=== PATIENT | female | born 1940 | race Caucasian/White ===

== ENCOUNTER 2018-07-15 21:30 | Inpatient (IN) ==
[2018-07-15] MEDS ORDERED: SODIUM CHLORIDE 0.9% 2,000 ML IV STA (21:54)
[2018-07-15 23:27] LABS: Apearance,Urine Slightly Hazy (Clear); Bacteria,Urine Occasional /HPF (Few); Bilirubin,Urine Negative (Negative); Blood, Urine Small mg/dL (Negative); Glucose,Urine (UA) Negative (Negative); Ketones,Urine 5 mg/dL (Negative); Mucus,Urine Occasional /LPF (Occasional); Nitrite,Urine Negative (Negative); Protein,Urine Negative; RBC,Urine 2 /HPF (0-4); Squamous Epithelial Cell,Urine Occasional /HPF (0-10); Urine Color Amber (Yellow); Urine Specific Gravity 1.015 (1.001-1.035); Urine Urobilinogen < 2.0 EU/DL (0.2-1.0); WBC,Urine 3 /HPF (0-6)
[2018-07-16] MEDS ORDERED: CEFEPIME 1,000 MG in SODIUM CHLORIDE 0.9% 100 ML IV STA (00:11)
[2018-07-16 00:21] LABS: Basophils % 0.2 % (0.0-0.8); Hematocrit 35.3 VOL% (35.7-47.0); Hemoglobin 11.9 GM/DL (12.0-16.0); Immature Granulocytes Absolute 0.19 #; Lymphocytes % 4.8 % (21.3-54.2); Mean Corpuscular HGB Conc 33.7 GM/DL (32-36); Mean Corpuscular Volume 89.8 FL (87-102); Mean Platelet Volume 12.5 FL (9.6-12.0); Monocytes % 7.8 % (1.7-12.7); Neutrophils % 86.2 % (38.7-73.9); Platelet Count 229 T/CUMM (130-400); Red Blood Count 3.93 MC/CUMM (3.8-5.5); Red Cell Distribution Width 13.8 % (9.3-17.3)
[2018-07-16] MEDS ORDERED: VANCOMYCIN INJ 1,000 MG in SODIUM CHLORIDE 0.9% 250 ML IV STA (00:29)
[2018-07-16 00:39] LABS: Albumin 2.7 G/DL (3.4-5.0); Calcium 7.9 MG/DL (8.5-10.1); Osmolality,Calculated 296.6 MOS/KG (273-304); Total Protein 5.6 G/DL (6.4-8.3)
[2018-07-16 00:55] LABS: Lymphocytes 4 % (20-55); Segmented Neutrophils 91 % (50-85); Total Cells Counted 100
[2018-07-16 00:56] LABS: Anisocytosis Slight; Microcytosis Slight
[2018-07-16 00:57] LABS: Platelet Estimate Normal
[2018-07-16] MEDS ORDERED: ACETAMINOPHEN 325 MG TABLET PO PRN (02:38)
[2018-07-16] MEDS ORDERED: DEXTROSE 50% 25 GM/50 ML SYRINGE IV PRN (02:38)
[2018-07-16] MEDS ORDERED: ONDANSETRON 4 MG/2 ML VIAL IV PRN (02:38)
[2018-07-16] MEDS ORDERED: GLUCAGON 1 MG VIAL IM PRN (02:38)
[2018-07-16] MEDS: PIPERACILLIN/TAZOBACTAM 3,375 MG in SODIUM CHLORIDE 0.9% 100 ML IV SCH ×2 (02:45→20:38)
[2018-07-16] MEDS: ENOXAPARIN 30 MG/0.3 ML SYRINGE SUBCUT SCH (04:49)
[2018-07-16] MEDS: SODIUM CHLORIDE 0.9% 1,000 ML IV SCH ×4 (04:50→20:38)
[2018-07-16 06:47] LABS: Basophils # 0.1 10*3/uL (0.0-0.2); Basophils % 0.3 % (0.0-0.8); Eosinophils % 0.2 % (0.00-10.9); Hematocrit 34.6 VOL% (35.7-47.0); Hemoglobin 11.2 GM/DL (12.0-16.0); Immature Granulocytes % 0.9 %; Immature Granulocytes Absolute 0.17 #; Lymphocytes # 2.5 10*3/uL (1.4-4.0); Lymphocytes % 13.7 % (21.3-54.2); Mean Corpuscular HGB Conc 32.4 GM/DL (32-36); Mean Corpuscular Volume 90.6 FL (87-102); Mean Platelet Volume 12.6 FL (9.6-12.0); Monocytes % 9.6 % (1.7-12.7); Neutrophils % 75.3 % (38.7-73.9); Platelet Count 232 T/CUMM (130-400); Red Blood Count 3.82 MC/CUMM (3.8-5.5); White Blood Count 18.2 T/CUMM (4-12)
[2018-07-16 07:37] LABS: Calcium 7.9 MG/DL (8.5-10.1); Osmolality,Calculated 297.4 MOS/KG (273-304); Thyroid Stimulating Hormone 2.66 uIU/ml (0.358-3.74)
[2018-07-16] MEDS: POTASSIUM CHLORIDE RIDER 10 MEQ in PREMIX 1 EACH IV PRN ×6 (07:52→17:53)
[2018-07-16] MEDS ORDERED: HALOPERIDOL 5 MG/ML AMP IV ONE (08:07)
[2018-07-16] MEDS: INSULIN REGULAR 100 UNIT/ML SUBCUT SCH ×4 (08:32→21:27)
[2018-07-16] MEDS ORDERED: LORazepam 2 MG/1 ML VIAL IV ONE (10:27)
[2018-07-17 03:05] LABS: Basophils # 0.1 10*3/uL (0.0-0.2); Basophils % 0.6 % (0.0-0.8); Eosinophils # 0.5 10*3/uL (0.0-0.87); Eosinophils % 4.8 % (0.00-10.9); Hematocrit 31.4 VOL% (35.7-47.0); Hemoglobin 10.1 GM/DL (12.0-16.0); Immature Granulocytes % 0.7 %; Immature Granulocytes Absolute 0.07 #; Lymphocytes # 2.7 10*3/uL (1.4-4.0); Lymphocytes % 26.5 % (21.3-54.2); Mean Corpuscular HGB Conc 32.2 GM/DL (32-36); Mean Platelet Volume 12.6 FL (9.6-12.0); Monocytes % 10.7 % (1.7-12.7); Neutrophils % 56.7 % (38.7-73.9); Platelet Count 190 T/CUMM (130-400); Red Blood Count 3.45 MC/CUMM (3.8-5.5); Red Cell Distribution Width 14.5 % (9.3-17.3); White Blood Count 10.2 T/CUMM (4-12)
[2018-07-17 03:37] LABS: Calcium 7.5 MG/DL (8.5-10.1); Osmolality,Calculated 291.4 MOS/KG (273-304)
[2018-07-17] MEDS: SODIUM CHLORIDE 0.9% 1,000 ML IV SCH (03:59)
[2018-07-17] MEDS: ENOXAPARIN 30 MG/0.3 ML SYRINGE SUBCUT SCH (04:00)
[2018-07-17] MEDS ORDERED: LORazepam 2 MG/1 ML VIAL IV ONE (08:04)
[2018-07-17] MEDS: INSULIN REGULAR 100 UNIT/ML SUBCUT SCH ×4 (10:09→22:20)
[2018-07-17] MEDS ORDERED: DEXTROSE 5% 1,000 ML IV SCH (10:30)
[2018-07-17] MEDS: PIPERACILLIN/TAZOBACTAM 3,375 MG in SODIUM CHLORIDE 0.9% 100 ML IV SCH ×2 (10:31→20:07)
[2018-07-17] MEDS: DEXTROSE 5% NACL 0.45% 1,000 ML IV SCH (10:31)
[2018-07-17] MEDS: POTASSIUM CHLORIDE RIDER 10 MEQ in PREMIX 1 EACH IV PRN ×4 (14:26→18:03)
[2018-07-17] MEDS: LORazepam 2 MG/1 ML VIAL IV PRN (20:10)
[2018-07-18] MEDS: LORazepam 2 MG/1 ML VIAL IV PRN ×2 (00:08→04:22)
[2018-07-18] MEDS: ENOXAPARIN 30 MG/0.3 ML SYRINGE SUBCUT SCH (04:21)
[2018-07-18] MEDS: DEXTROSE 5% NACL 0.45% 1,000 ML IV SCH (04:22)
[2018-07-18 04:48] LABS: Basophils # 0.1 10*3/uL (0.0-0.2); Basophils % 0.8 % (0.0-0.8); Eosinophils # 0.8 10*3/uL (0.0-0.87); Eosinophils % 6.6 % (0.00-10.9); Hematocrit 32.2 VOL% (35.7-47.0); Hemoglobin 10.5 GM/DL (12.0-16.0); Immature Granulocytes % 1.6 %; Immature Granulocytes Absolute 0.18 #; Lymphocytes # 2.7 10*3/uL (1.4-4.0); Lymphocytes % 23.6 % (21.3-54.2); Mean Corpuscular HGB Conc 32.6 GM/DL (32-36); Mean Corpuscular Volume 89.4 FL (87-102); Mean Platelet Volume 12.5 FL (9.6-12.0); Monocytes % 10.7 % (1.7-12.7); Neutrophils % 56.7 % (38.7-73.9); Platelet Count 194 T/CUMM (130-400); Red Cell Distribution Width 14.1 % (9.3-17.3); White Blood Count 11.6 T/CUMM (4-12)
[2018-07-18 05:06] LABS: Calcium 7.5 MG/DL (8.5-10.1); Osmolality,Calculated 287.8 MOS/KG (273-304)
[2018-07-18] MEDS ORDERED: SODIUM BICARB INJ 50 MEQ in DEXTROSE 5% NACL 0.45% 1,000 ML IV SCH (09:00)
[2018-07-18] MEDS: INSULIN REGULAR 100 UNIT/ML SUBCUT SCH ×4 (09:06→22:07)
[2018-07-18] MEDS: PIPERACILLIN/TAZOBACTAM 3,375 MG in SODIUM CHLORIDE 0.9% 100 ML IV SCH ×2 (09:07→22:43)
[2018-07-18] MEDS ORDERED: POTASSIUM CHLORIDE IV SCH (10:30)
[2018-07-18] MEDS ORDERED: [UNRECOGNIZED DRUG - OTHER] IV SCH (10:30)
[2018-07-18] MEDS ORDERED: SODIUM BICARB IV SCH (10:30)
[2018-07-18] MEDS ORDERED: MAGNESIUM SULF IV SCH (10:30)
[2018-07-19] MEDS: DEXTROSE 5% NACL 0.45% 1,000 ML IV SCH (00:14)
[2018-07-19] MEDS: ENOXAPARIN 30 MG/0.3 ML SYRINGE SUBCUT SCH (03:19)
[2018-07-19] MEDS: SODIUM BICARB INJ 50 MEQ in DEXTROSE 5% NACL 0.45% 1,000 ML IV SCH ×2 (04:36→19:34)
[2018-07-19 05:04] LABS: Calcium 7.9 MG/DL (8.5-10.1); Osmolality,Calculated 287.6 MOS/KG (273-304)
[2018-07-19] MEDS: LEVOTHYROXINE 100 MCG VIAL IV SCH (06:42)
[2018-07-19] MEDS: INSULIN REGULAR 100 UNIT/ML SUBCUT SCH ×4 (07:30→20:29)
[2018-07-19] MEDS: PIPERACILLIN/TAZOBACTAM 3,375 MG in SODIUM CHLORIDE 0.9% 100 ML IV SCH (08:40)
[2018-07-19] MEDS: DEXTROSE 5% 1,000 ML IV SCH (13:05)
[2018-07-19] MEDS ORDERED: TUBERCULIN SKIN TEST 0.1 ML SYRINGE INTRADERM ONE (14:50)
[2018-07-20] MEDS: ENOXAPARIN 30 MG/0.3 ML SYRINGE SUBCUT SCH (02:06)
[2018-07-20] MEDS: LORazepam 2 MG/1 ML VIAL IV PRN ×2 (02:22→09:59)
[2018-07-20] MEDS: DEXTROSE 5% 1,000 ML IV SCH ×2 (03:19→15:44)
[2018-07-20 04:50] LABS: Osmolality,Calculated 280.1 MOS/KG (273-304)
[2018-07-20] MEDS ORDERED: POTASSIUM CHLORIDE 20 MEQ TABLET PO ONE (05:02)
[2018-07-20] MEDS: LEVOTHYROXINE 100 MCG VIAL IV SCH (05:37)
[2018-07-20] MEDS: INSULIN REGULAR 100 UNIT/ML SUBCUT SCH ×4 (07:46→20:20)
[2018-07-20] MEDS ORDERED: MAGNESIUM SULF RIDER 4 GM in PREMIX 1 EACH IV PRN (08:49)
[2018-07-20] MEDS ORDERED: MAGNESIUM SULF RIDER 2 GM in PREMIX 1 EACH IV PRN (08:49)
[2018-07-20] MEDS: VANCOMYCIN 50 MG/ML 60 ML/BOTTLE PO SCH ×4 (09:52→23:57)
[2018-07-20] MEDS: LOSARTAN 25 MG TABLET PO SCH (12:17)
[2018-07-20] MEDS: POTASSIUM CHLORIDE RIDER 10 MEQ in PREMIX 1 EACH IV PRN ×3 (12:18→18:02)
[2018-07-20] MEDS: DONEPEZIL 10 MG TABLET PO SCH (21:33)
[2018-07-21] MEDS: LORazepam 2 MG/1 ML VIAL IV PRN (03:01)
[2018-07-21] MEDS: ENOXAPARIN 30 MG/0.3 ML SYRINGE SUBCUT SCH (03:01)
[2018-07-21 05:36] LABS: Calcium 8.1 MG/DL (8.5-10.1); Osmolality,Calculated 282.8 MOS/KG (273-304)
[2018-07-21] MEDS: VANCOMYCIN 50 MG/ML 60 ML/BOTTLE PO SCH ×3 (05:44→18:05)
[2018-07-21] MEDS: LEVOTHYROXINE 100 MCG VIAL IV SCH (05:44)
[2018-07-21] MEDS: INSULIN REGULAR 100 UNIT/ML SUBCUT SCH ×4 (08:34→22:49)
[2018-07-21] MEDS: DEXTROSE 5% 1,000 ML IV SCH ×3 (08:41→22:46)
[2018-07-21] MEDS: LOSARTAN 25 MG TABLET PO SCH (08:42)
[2018-07-21] MEDS: GABAPENTIN 100 MG CAPSULE PO SCH (09:42)
[2018-07-21] MEDS: MAGNESIUM CHLORIDE 64 MG TABLET PO SCH ×2 (12:19→22:48)
[2018-07-21] MEDS: DONEPEZIL 10 MG TABLET PO SCH (22:48)
[2018-07-22] MEDS: VANCOMYCIN 50 MG/ML 60 ML/BOTTLE PO SCH ×4 (00:14→17:42)
[2018-07-22 05:22] LABS: Calcium 8.9 MG/DL (8.5-10.1)
[2018-07-22] MEDS: ENOXAPARIN 30 MG/0.3 ML SYRINGE SUBCUT SCH (06:10)
[2018-07-22] MEDS: LEVOTHYROXINE 100 MCG VIAL IV SCH (06:11)
[2018-07-22] MEDS: INSULIN REGULAR 100 UNIT/ML SUBCUT SCH ×3 (08:27→16:18)
[2018-07-22] MEDS: MAGNESIUM CHLORIDE 64 MG TABLET PO SCH (08:48)
[2018-07-22] MEDS: GABAPENTIN 100 MG CAPSULE PO SCH (09:04)
[2018-07-22] MEDS: DEXTROSE 5% 1,000 ML IV SCH (09:06)
[2018-07-22] MEDS: LEVOTHYROXINE 50 MCG TABLET PO SCH (14:51)
[2018-07-23] MEDS: DONEPEZIL 10 MG TABLET PO SCH ×2 (00:01→20:51)
[2018-07-23] MEDS: INSULIN REGULAR 100 UNIT/ML SUBCUT SCH ×5 (00:01→20:16)
[2018-07-23] MEDS: GABAPENTIN 100 MG CAPSULE PO SCH ×2 (00:01→20:51)
[2018-07-23] MEDS: MAGNESIUM CHLORIDE 64 MG TABLET PO SCH ×3 (00:01→20:51)
[2018-07-23] MEDS: VANCOMYCIN 50 MG/ML 60 ML/BOTTLE PO SCH ×4 (00:04→17:51)
[2018-07-23] MEDS: ENOXAPARIN 30 MG/0.3 ML SYRINGE SUBCUT SCH (03:10)
[2018-07-23] MEDS: DEXTROSE 5% 1,000 ML IV SCH ×3 (04:30→17:51)
[2018-07-23] MEDS: LEVOTHYROXINE 50 MCG TABLET PO SCH (05:43)
[2018-07-23 06:20] LABS: Calcium 8.5 MG/DL (8.5-10.1); Osmolality,Calculated 273.5 MOS/KG (273-304)
[2018-07-24] MEDS: VANCOMYCIN 50 MG/ML 60 ML/BOTTLE PO SCH ×4 (00:50→17:53)
[2018-07-24] MEDS: ENOXAPARIN 30 MG/0.3 ML SYRINGE SUBCUT SCH (03:44)
[2018-07-24] MEDS: LEVOTHYROXINE 50 MCG TABLET PO SCH (05:32)
[2018-07-24] MEDS: INSULIN REGULAR 100 UNIT/ML SUBCUT SCH ×4 (07:29→21:44)
[2018-07-24] MEDS: DEXTROSE 5% 1,000 ML IV SCH ×2 (07:58→20:51)
[2018-07-24] MEDS: MAGNESIUM CHLORIDE 64 MG TABLET PO SCH ×2 (07:59→20:51)
[2018-07-24] MEDS: GABAPENTIN 100 MG CAPSULE PO SCH (20:51)
[2018-07-24] MEDS: DONEPEZIL 10 MG TABLET PO SCH (20:51)
[2018-07-25] MEDS: VANCOMYCIN 50 MG/ML 60 ML/BOTTLE PO SCH ×3 (00:41→12:15)
[2018-07-25] MEDS ORDERED: ENOXAPARIN 40 MG/0.4 ML SYRINGE SUBCUT SCH (03:00)
[2018-07-25] MEDS: LEVOTHYROXINE 50 MCG TABLET PO SCH (05:45)
[2018-07-25 08:01] VITALS: BP 139/80
[2018-07-25] MEDS: INSULIN REGULAR 100 UNIT/ML SUBCUT SCH (09:02)
[2018-07-25] MEDS: MAGNESIUM CHLORIDE 64 MG TABLET PO SCH (09:06)
== END 2018-07-25 13:10 | DRG 872 ==
LOC: EDUNIT# → EDBD → N.ED 21:30 → SUATTDRO 07-16 02:13 → N.EDINP 07-16 02:13 → N.5E 07-16 03:01
PROVIDERS: ADMIT Internal Medicine; ATTEND Internal Medicine

== ENCOUNTER 2018-08-24 13:34 | Inpatient (IN) ==
[2018-08-24 14:44] LABS: Basophils # 0.1 10*3/uL (0.0-0.2); Basophils % 0.6 % (0.0-0.8); Eosinophils # 0.2 10*3/uL (0.0-0.87); Eosinophils % 1.8 % (0.00-10.9); Hematocrit 34.4 VOL% (35.7-47.0); Hemoglobin 10.8 GM/DL (12.0-16.0); Immature Granulocytes % 0.7 %; Immature Granulocytes Absolute 0.08 #; Lymphocytes # 4.3 10*3/uL (1.4-4.0); Lymphocytes % 35.2 % (21.3-54.2); Mean Corpuscular HGB Conc 31.4 GM/DL (32-36); Mean Corpuscular Volume 99.7 FL (87-102); Mean Platelet Volume 11.8 FL (9.6-12.0); Monocytes % 11.5 % (1.7-12.7); Neutrophils % 50.2 % (38.7-73.9); Platelet Count 310 T/CUMM (130-400); Red Blood Count 3.45 MC/CUMM (3.8-5.5); Red Cell Distribution Width 15.5 % (9.3-17.3); White Blood Count 12.2 T/CUMM (4-12)
[2018-08-24 15:04] LABS: Alanine Aminotransferase 27 U/L (13-56); Albumin 3.1 G/DL (3.4-5.0); Alkaline Phosphatase 113 U/L (45-117); Aspartate Amino Transferase 34 U/L (0-37); Bilirubin,Total < 0.39 MG/DL (0.2-1.0); Blood Urea Nitrogen 12 MG/DL (7-18); Calcium 8.8 MG/DL (8.5-10.1); Glucose 110 MG/DL (74-106); Osmolality,Calculated 288.7 MOS/KG (273-304); Total Protein 6.6 G/DL (6.4-8.3)
[2018-08-24] MEDS ORDERED: ONDANSETRON 4 MG/2 ML VIAL IV PRN (16:03)
[2018-08-24] MEDS ORDERED: LACTULOSE 20 GM/30 ML UDCUP PO PRN (16:03)
[2018-08-24] MEDS ORDERED: ACETAMINOPHEN 325 MG TABLET PO PRN (16:03)
[2018-08-24] MEDS ORDERED: DEXTROSE 50% 25 GM/50 ML VIAL IV PRN (16:03)
[2018-08-24] MEDS ORDERED: GLUCAGON 1 MG VIAL IM PRN (16:03)
[2018-08-24 17:16] LABS: Apearance,Urine CLOUDY (Clear); Bacteria,Urine Occasional /HPF (Few); Bilirubin,Urine Negative (Negative); Blood, Urine Negative (Negative); Glucose,Urine (UA) Negative (Negative); Hyaline Casts,Urine 1 /LPF (0-3); Ketones,Urine Negative (Negative); Mucus,Urine Occasional /LPF (Occasional); Nitrite,Urine Positive (Negative); Protein,Urine Negative; RBC,Urine 11 /HPF (0-4); Urine Color Yellow (Yellow); Urine Specific Gravity 1.014 (1.001-1.035); Urine Urobilinogen < 2.0 EU/DL (0.2-1.0); WBC,Urine 142 /HPF (0-6)
[2018-08-24 17:20] LABS: Risk Ratio 2.85; Thyroid Stimulating Hormone 18.1 uIU/ml (0.358-3.74); VLDL CHOLESTEROL 17.6 MG/DL
[2018-08-24] MEDS: DONEPEZIL 10 MG TABLET PO SCH (20:56)
[2018-08-24] MEDS: POTASSIUM CHLORIDE INJ 20 MEQ in LACTATED RINGERS 1,000 ML IV SCH (20:56)
[2018-08-24] MEDS: MAGNESIUM CHLORIDE 64 MG TABLET PO SCH (20:56)
[2018-08-24] MEDS: GABAPENTIN 100 MG CAPSULE PO SCH (20:56)
[2018-08-25 05:38] LABS: Basophils # 0.1 10*3/uL (0.0-0.2); Basophils % 0.4 % (0.0-0.8); Eosinophils # 0.2 10*3/uL (0.0-0.87); Eosinophils % 1.7 % (0.00-10.9); Hematocrit 27.8 VOL% (35.7-47.0); Hemoglobin 8.6 GM/DL (12.0-16.0); Immature Granulocytes % 0.6 %; Immature Granulocytes Absolute 0.08 #; Lymphocytes # 2.8 10*3/uL (1.4-4.0); Lymphocytes % 19.9 % (21.3-54.2); Mean Corpuscular HGB Conc 30.9 GM/DL (32-36); Mean Corpuscular Volume 100.7 FL (87-102); Mean Platelet Volume 11.7 FL (9.6-12.0); Monocytes % 14.5 % (1.7-12.7); Neutrophils % 62.9 % (38.7-73.9); Platelet Count 252 T/CUMM (130-400); Red Blood Count 2.76 MC/CUMM (3.8-5.5); Red Cell Distribution Width 15.7 % (9.3-17.3); White Blood Count 13.9 T/CUMM (4-12)
[2018-08-25 06:05] LABS: Calcium 8.3 MG/DL (8.5-10.1)
[2018-08-25] MEDS: POTASSIUM CHLORIDE INJ 20 MEQ in LACTATED RINGERS 1,000 ML IV SCH (06:18)
[2018-08-25] MEDS ORDERED: LEVOTHYROXINE 75 MCG TABLET PO SCH ×2 (06:30→06:46)
[2018-08-25] MEDS ORDERED: ceFAZolin 1,000 MG in SYRINGE 1 EACH IV ONE (06:30)
[2018-08-25] MEDS ORDERED: MEPERIDINE 25 MG/1 ML VIAL IV PRN (07:26)
[2018-08-25] MEDS ORDERED: ONDANSETRON 4 MG/2 ML VIAL IV PRN (07:26)
[2018-08-25] MEDS ORDERED: BACITRACIN OINT 0.9 GM PACK TOP ONE (08:10)
[2018-08-25] MEDS ORDERED: cefTRIAXone 1,000 MG VIAL ONE (08:25)
[2018-08-25] MEDS ORDERED: ONDANSETRON 4 MG/2 ML VIAL ONE ×2 (08:37→11:12)
[2018-08-25] MEDS ORDERED: MEPERIDINE 25 MG/1 ML VIAL ONE (08:37)
[2018-08-25] MEDS: cefTRIAXone 1,000 MG in SYRINGE 1 EACH IV SCH (08:41)
[2018-08-25] MEDS: MAGNESIUM CHLORIDE 64 MG TABLET PO SCH ×2 (08:42→20:24)
[2018-08-25] MEDS: PANTOPRAZOLE 40 MG TABLET PO SCH (08:42)
[2018-08-25] MEDS: LEVOTHYROXINE 75 MCG TABLET PO SCH (08:42)
[2018-08-25] MEDS ORDERED: MORPHINE 4 MG/1 ML VIAL IV PRN (09:44)
[2018-08-25] MEDS: KETOROLAC 15 MG/1 ML VIAL IV SCH ×3 (10:10→23:04)
[2018-08-25] MEDS ORDERED: PROPOFOL 200 MG/20 ML VIAL IV ONE (11:11)
[2018-08-25] MEDS ORDERED: NEOSTIGMINE 10 MG/10 ML VIAL ONE (11:12)
[2018-08-25] MEDS ORDERED: ACETAMINOPHEN 1,000 MG/100 ML VIAL IV ONE (11:12)
[2018-08-25] MEDS ORDERED: SEVOFLURANE 1 UNIT/15 MINUTE INH ONE (11:12)
[2018-08-25] MEDS ORDERED: PHENYLEPHRINE 1 MG/10 ML SYRINGE IV ONE (11:12)
[2018-08-25] MEDS ORDERED: GLYCOPYRROLATE 0.4 MG/2 ML VIAL ONE (11:12)
[2018-08-25] MEDS ORDERED: LACTATED RINGERS 1,000 ML IV ONE (11:12)
[2018-08-25] MEDS ORDERED: ROCURONIUM 100 MG/10 ML VIAL IV ONE (11:12)
[2018-08-25] MEDS ORDERED: fentaNYL 100 MCG/2 ML VIAL ONE (11:12)
[2018-08-25] MEDS: ceFAZolin 1,000 MG in SYRINGE 1 EACH IV SCH ×2 (13:37→23:05)
[2018-08-25] MEDS: ACETAMINOPHEN 500 MG TABLET PO SCH ×2 (13:42→20:24)
[2018-08-25 13:46] LABS: Apearance,Urine CLEAR (Clear); Bacteria,Urine Occasional /HPF (Few); Bilirubin,Urine Negative (Negative); Blood, Urine Negative (Negative); Glucose,Urine (UA) Negative (Negative); Ketones,Urine Negative (Negative); Nitrite,Urine Negative (Negative); Protein,Urine Negative; RBC,Urine 2 /HPF (0-4); Squamous Epithelial Cell,Urine Occasional /HPF (0-10); Urine Color Yellow (Yellow); Urine Specific Gravity 1.009 (1.001-1.035); Urine Urobilinogen < 2.0 EU/DL (0.2-1.0); WBC,Urine 18 /HPF (0-6)
[2018-08-25] MEDS: GABAPENTIN 100 MG CAPSULE PO SCH ×2 (16:03→20:24)
[2018-08-25] MEDS ORDERED: LORazepam 2 MG/1 ML VIAL IV PRN (16:10)
[2018-08-25] MEDS: DONEPEZIL 10 MG TABLET PO SCH (20:23)
[2018-08-25] MEDS: DOCUSATE SODIUM 100 MG CAPSULE PO SCH (20:23)
[2018-08-26] MEDS: ACETAMINOPHEN 500 MG TABLET PO SCH ×2 (02:41→09:36)
[2018-08-26] MEDS: KETOROLAC 15 MG/1 ML VIAL IV SCH (04:30)
[2018-08-26] MEDS: FONDAPARINUX 2.5 MG/0.5 ML SYRINGE SUBCUT SCH (04:31)
[2018-08-26] MEDS: POTASSIUM CHLORIDE INJ 20 MEQ in LACTATED RINGERS 1,000 ML IV SCH ×3 (05:16→16:14)
[2018-08-26 06:34] LABS: Basophils # 0.1 10*3/uL (0.0-0.2); Basophils % 0.4 % (0.0-0.8); Eosinophils # 0.4 10*3/uL (0.0-0.87); Eosinophils % 2.4 % (0.00-10.9); Hematocrit 28.1 VOL% (35.7-47.0); Hemoglobin 8.4 GM/DL (12.0-16.0); Immature Granulocytes % 0.7 %; Immature Granulocytes Absolute 0.12 #; Lymphocytes % 11.8 % (21.3-54.2); Mean Corpuscular HGB Conc 29.9 GM/DL (32-36); Mean Corpuscular Volume 101.8 FL (87-102); Mean Platelet Volume 11.5 FL (9.6-12.0); Monocytes % 15.1 % (1.7-12.7); Neutrophils % 69.6 % (38.7-73.9); Platelet Count 209 T/CUMM (130-400); Red Blood Count 2.76 MC/CUMM (3.8-5.5); Red Cell Distribution Width 15.6 % (9.3-17.3); White Blood Count 17.3 T/CUMM (4-12)
[2018-08-26 06:49] LABS: Calcium 8.2 MG/DL (8.5-10.1)
[2018-08-26] MEDS: LEVOTHYROXINE 75 MCG TABLET PO SCH (07:17)
[2018-08-26] MEDS: MAGNESIUM CHLORIDE 64 MG TABLET PO SCH ×2 (09:36→20:12)
[2018-08-26] MEDS: DOCUSATE SODIUM 100 MG CAPSULE PO SCH ×2 (09:37→20:12)
[2018-08-26] MEDS: PANTOPRAZOLE 40 MG TABLET PO SCH (09:37)
[2018-08-26] MEDS: cefTRIAXone 1,000 MG in SYRINGE 1 EACH IV SCH (09:37)
[2018-08-26] MEDS: ZINC OXIDE PASTE 113 GM TUBE TOP SCH ×2 (14:51→20:38)
[2018-08-26] MEDS: GABAPENTIN 100 MG CAPSULE PO SCH ×2 (16:12→20:15)
[2018-08-26] MEDS: oxyCODONE IR 5 MG TABLET PO PRN (20:12)
[2018-08-26] MEDS: DONEPEZIL 10 MG TABLET PO SCH (20:12)
[2018-08-27] MEDS: FONDAPARINUX 2.5 MG/0.5 ML SYRINGE SUBCUT SCH (03:08)
[2018-08-27] MEDS: POTASSIUM CHLORIDE INJ 20 MEQ in LACTATED RINGERS 1,000 ML IV SCH ×3 (05:14→23:30)
[2018-08-27] MEDS: LEVOTHYROXINE 75 MCG TABLET PO SCH (05:44)
[2018-08-27 06:27] LABS: Basophils # 0.1 10*3/uL (0.0-0.2); Basophils % 0.4 % (0.0-0.8); Eosinophils # 0.3 10*3/uL (0.0-0.87); Eosinophils % 1.7 % (0.00-10.9); Hematocrit 27.6 VOL% (35.7-47.0); Hemoglobin 8.5 GM/DL (12.0-16.0); Immature Granulocytes % 1.2 %; Lymphocytes # 2.5 10*3/uL (1.4-4.0); Lymphocytes % 14.8 % (21.3-54.2); Mean Corpuscular HGB Conc 30.8 GM/DL (32-36); Mean Platelet Volume 12.5 FL (9.6-12.0); Monocytes % 13.5 % (1.7-12.7); Neutrophils % 68.4 % (38.7-73.9); Platelet Count 230 T/CUMM (130-400); Red Blood Count 2.76 MC/CUMM (3.8-5.5); Red Cell Distribution Width 15.3 % (9.3-17.3); White Blood Count 16.8 T/CUMM (4-12)
[2018-08-27 06:38] LABS: Calcium 8.4 MG/DL (8.5-10.1); Osmolality,Calculated 281.1 MOS/KG (273-304)
[2018-08-27] MEDS: cefTRIAXone 1,000 MG in SYRINGE 1 EACH IV SCH (09:41)
[2018-08-27] MEDS: ZINC OXIDE PASTE 113 GM TUBE TOP SCH ×2 (09:42→22:09)
[2018-08-27] MEDS: MAGNESIUM CHLORIDE 64 MG TABLET PO SCH ×2 (09:42→22:08)
[2018-08-27] MEDS: PANTOPRAZOLE 40 MG TABLET PO SCH (09:42)
[2018-08-27] MEDS: DOCUSATE SODIUM 100 MG CAPSULE PO SCH ×2 (09:42→22:09)
[2018-08-27] MEDS: GABAPENTIN 100 MG CAPSULE PO SCH ×2 (15:52→22:08)
[2018-08-27] MEDS: DONEPEZIL 10 MG TABLET PO SCH (22:08)
[2018-08-27] MEDS: oxyCODONE IR 5 MG TABLET PO PRN (22:08)
[2018-08-28 04:43] LABS: Basophils # 0.1 10*3/uL (0.0-0.2); Basophils % 0.4 % (0.0-0.8); Eosinophils # 0.3 10*3/uL (0.0-0.87); Eosinophils % 2.1 % (0.00-10.9); Hematocrit 26.2 VOL% (35.7-47.0); Hemoglobin 8.3 GM/DL (12.0-16.0); Immature Granulocytes % 0.8 %; Immature Granulocytes Absolute 0.11 #; Lymphocytes # 2.3 10*3/uL (1.4-4.0); Lymphocytes % 16.5 % (21.3-54.2); Mean Corpuscular HGB Conc 31.7 GM/DL (32-36); Mean Corpuscular Volume 99.2 FL (87-102); Mean Platelet Volume 12.5 FL (9.6-12.0); Monocytes % 17.5 % (1.7-12.7); Neutrophils % 62.7 % (38.7-73.9); Platelet Count 239 T/CUMM (130-400); Red Blood Count 2.64 MC/CUMM (3.8-5.5); Red Cell Distribution Width 15.3 % (9.3-17.3); White Blood Count 13.7 T/CUMM (4-12)
[2018-08-28 05:10] LABS: Band Neutrophils 4 % (0-10); Lymphocytes 15 % (20-55); Segmented Neutrophils 73 % (50-85); Total Cells Counted 100
[2018-08-28 05:11] LABS: Anisocytosis 1+; Platelet Estimate Adequate
[2018-08-28 05:19] LABS: Calcium 8.1 MG/DL (8.5-10.1); Osmolality,Calculated 281.1 MOS/KG (273-304)
[2018-08-28] MEDS: LEVOTHYROXINE 75 MCG TABLET PO SCH (06:36)
[2018-08-28] MEDS: cefTRIAXone 1,000 MG in SYRINGE 1 EACH IV SCH (09:16)
[2018-08-28] MEDS: POTASSIUM CHLORIDE INJ 20 MEQ in LACTATED RINGERS 1,000 ML IV SCH ×2 (09:20→19:26)
[2018-08-28] MEDS: FONDAPARINUX 2.5 MG/0.5 ML SYRINGE SUBCUT SCH (10:35)
[2018-08-28] MEDS: DOCUSATE SODIUM 100 MG CAPSULE PO SCH ×2 (10:36→22:03)
[2018-08-28] MEDS: PANTOPRAZOLE 40 MG TABLET PO SCH (10:36)
[2018-08-28] MEDS: MAGNESIUM CHLORIDE 64 MG TABLET PO SCH ×2 (10:36→22:03)
[2018-08-28] MEDS: ZINC OXIDE PASTE 113 GM TUBE TOP SCH ×2 (10:37→22:03)
[2018-08-28] MEDS: oxyCODONE IR 5 MG TABLET PO PRN ×2 (10:47→22:02)
[2018-08-28] MEDS: GABAPENTIN 100 MG CAPSULE PO SCH ×2 (16:43→22:02)
[2018-08-28] MEDS: DONEPEZIL 10 MG TABLET PO SCH (22:02)
[2018-08-29] MEDS: POTASSIUM CHLORIDE INJ 20 MEQ in LACTATED RINGERS 1,000 ML IV SCH ×2 (01:04→07:25)
[2018-08-29 05:04] LABS: Basophils # 0.1 10*3/uL (0.0-0.2); Basophils % 0.5 % (0.0-0.8); Eosinophils # 0.5 10*3/uL (0.0-0.87); Eosinophils % 3.6 % (0.00-10.9); Hematocrit 25.8 VOL% (35.7-47.0); Hemoglobin 8.4 GM/DL (12.0-16.0); Immature Granulocytes % 0.7 %; Immature Granulocytes Absolute 0.09 #; Lymphocytes # 2.7 10*3/uL (1.4-4.0); Lymphocytes % 21.9 % (21.3-54.2); Mean Corpuscular HGB Conc 32.6 GM/DL (32-36); Mean Corpuscular Volume 98.9 FL (87-102); Mean Platelet Volume 11.9 FL (9.6-12.0); Monocytes % 14.9 % (1.7-12.7); Neutrophils % 58.4 % (38.7-73.9); Platelet Count 268 T/CUMM (130-400); Red Blood Count 2.61 MC/CUMM (3.8-5.5); Red Cell Distribution Width 14.9 % (9.3-17.3); White Blood Count 12.5 T/CUMM (4-12)
[2018-08-29 05:16] LABS: Osmolality,Calculated 279.3 MOS/KG (273-304)
[2018-08-29] MEDS: LEVOTHYROXINE 75 MCG TABLET PO SCH (06:20)
[2018-08-29] MEDS: cefTRIAXone 1,000 MG in SYRINGE 1 EACH IV SCH (06:41)
[2018-08-29] MEDS: FONDAPARINUX 2.5 MG/0.5 ML SYRINGE SUBCUT SCH (09:32)
[2018-08-29] MEDS: ZINC OXIDE PASTE 113 GM TUBE TOP SCH (09:32)
[2018-08-29] MEDS: MAGNESIUM CHLORIDE 64 MG TABLET PO SCH (09:32)
[2018-08-29] MEDS: PANTOPRAZOLE 40 MG TABLET PO SCH (09:32)
[2018-08-29] MEDS: DOCUSATE SODIUM 100 MG CAPSULE PO SCH (09:32)
[2018-08-29 11:56] VITALS: BP 123/84
== END 2018-08-29 13:18 | DRG 481 ==
LOC: N.ED 13:34 → N.EDINP 16:03 → SUATTDRO 16:03 → N.3E 16:50
PROVIDERS: ADMIT Nurse Practitioner Family; ATTEND Internal Medicine

== ENCOUNTER 2021-07-24 10:15 | Inpatient (IN) ==
[2021-07-24 12:05] LABS: CKMB % 20.91 %; High Sensitive Troponin I* 28.8 ng/L (0-54)
[2021-07-24 12:06] LABS: Lactic Acid 2.4 MMOL/L (0.4-2.0)
[2021-07-24 12:08] LABS: Ammonia < 10 UMOL/L (11-32)
[2021-07-24 12:12] LABS: Alanine Aminotransferase 27 U/L (13-56); Albumin 2.8 G/DL (3.4-5.0); Alkaline Phosphatase 311 U/L (45-117); Aspartate Amino Transferase 24 U/L (0-37); Basophils % 0.2 % (0.0-0.8); Bilirubin,Total < 0.39 MG/DL (0.20-1.00); Blood Urea Nitrogen 41 MG/DL (7-18); Carbon Dioxide 29 MMOL/L (21-32); Chloride 134 MMOL/L (98-107); Eosinophils % 0.2 % (0.00-10.9); Glucose 233 MG/DL (74-106); Hematocrit 50.6 VOL% (35.7-47.0); Hemoglobin 15.2 GM/DL (12.0-16.0); Immature Granulocytes % 0.6 %; Immature Granulocytes Absolute 0.11 #; Lymphocytes # 2.4 10*3/uL (1.4-4.0); Lymphocytes % 13.6 % (21.3-54.2); Mean Corpuscular Volume 100.8 FL (87-102); Mean Platelet Volume 13.7 FL (9.6-12.0); Monocytes # 1.1 10*3/uL (0.11-0.8); Monocytes % 6.5 % (1.7-12.7); Neutrophils % 78.9 % (38.7-73.9); Osmolality,Calculated 347.5 MOS/KG (273-304); Platelet Count 279 T/CUMM (130-400); Red Blood Count 5.02 MC/CUMM (3.8-5.5); Red Cell Distribution Width 15.1 % (9.3-17.3); Thyroid Stimulating Hormone 0.116 uIU/ml (0.358-3.74); White Blood Count 17.6 T/CUMM (4-12)
[2021-07-24 12:16] LABS: Sodium 168 MMOL/L (136-145)
[2021-07-24 12:27] LABS: Platelet Estimate Adequate
[2021-07-24] MEDS ORDERED: SODIUM CHLORIDE 0.9% 1,000 ML IV STA (12:31)
[2021-07-24] MEDS ORDERED: cefTRIAXone 1,000 MG in SODIUM CHLORIDE 0.9% 100 ML IV STA (12:35)
[2021-07-24] MEDS ORDERED: ACETAMINOPHEN 325 MG TABLET PO PRN (15:36)
[2021-07-24] MEDS ORDERED: ONDANSETRON 4 MG/2 ML VIAL IV PRN (15:36)
[2021-07-24] MEDS ORDERED: SODIUM CHLORIDE 0.9% 1,000 ML IV ONE (15:36)
[2021-07-24] MEDS ORDERED: GLUCAGON 1 MG VIAL IM PRN (15:36)
[2021-07-24] MEDS ORDERED: DEXTROSE 10% 250 ML BAG IV PRN (15:44)
[2021-07-24] MEDS ORDERED: SODIUM CHLORIDE 0.45% 1,000 ML IV SCH (16:00)
[2021-07-24] MEDS: MEROPENEM 500 MG in SODIUM CHLORIDE 0.9% 100 ML IV SCH (16:39)
[2021-07-24] MEDS: INSULIN LISPRO 100 UNIT/ML SUBCUT SCH ×2 (17:51→22:14)
[2021-07-24 21:04] LABS: Calcium 8.5 MG/DL (8.5-10.1)
[2021-07-24 21:05] LABS: Osmolality,Calculated 344.2 MOS/KG (273-304)
[2021-07-24] MEDS ORDERED: SODIUM BICARB INJ 50 MEQ in STERILE WATER INJ 1,000 ML IV SCH (22:00)
[2021-07-24] MEDS: TIMOLOL 0.25% OPH SOLN 5 ML BOTTLE BOTH EYES SCH (22:28)
[2021-07-24] MEDS: LATANOPROST 0.005% OPH SOLN 2.5 ML BOTTLE BOTH EYES SCH (22:28)
[2021-07-24] MEDS: ENOXAPARIN 30 MG/0.3 ML SYRINGE SUBCUT SCH (22:28)
[2021-07-25 03:01] LABS: Calcium 8.3 MG/DL (8.5-10.1); Osmolality,Calculated 336.8 MOS/KG (273-304); Potassium 3.8 MMOL/L (3.5-5.1)
[2021-07-25] MEDS: MEROPENEM 500 MG in SODIUM CHLORIDE 0.9% 100 ML IV SCH ×3 (04:22→17:27)
[2021-07-25 05:33] LABS: Alanine Aminotransferase 19 U/L (13-56); Albumin 1.6 G/DL (3.4-5.0); Alkaline Phosphatase 168 U/L (45-117); Aspartate Amino Transferase 27 U/L (0-37); Bilirubin,Total < 0.39 MG/DL (0.20-1.00); Blood Urea Nitrogen 28 MG/DL (7-18); Calcium 6.5 MG/DL (8.5-10.1); Carbon Dioxide 20 MMOL/L (21-32); Chloride 141 MMOL/L (98-107); Glucose 105 MG/DL (74-106); Osmolality,Calculated 338.3 MOS/KG (273-304); Total Protein 4.3 G/DL (6.4-8.2)
[2021-07-25 05:35] LABS: Sodium 169 MMOL/L (136-145)
[2021-07-25 05:57] LABS: Basophils # 0.1 10*3/uL (0.0-0.2); Basophils % 0.3 % (0.0-0.8); Eosinophils # 0.1 10*3/uL (0.0-0.87); Eosinophils % 0.4 % (0.00-10.9); Hematocrit 38.4 VOL% (35.7-47.0); Hemoglobin 11.5 GM/DL (12.0-16.0); Immature Granulocytes % 0.9 %; Immature Granulocytes Absolute 0.19 #; Lymphocytes # 2.4 10*3/uL (1.4-4.0); Lymphocytes % 11.9 % (21.3-54.2); Mean Corpuscular HGB Conc 29.9 GM/DL (32-36); Mean Corpuscular Volume 103.5 FL (87-102); Mean Platelet Volume 13.7 FL (9.6-12.0); Monocytes # 1.4 10*3/uL (0.11-0.8); Monocytes % 6.9 % (1.7-12.7); Neutrophils % 79.6 % (38.7-73.9); Platelet Count 202 T/CUMM (130-400); Red Blood Count 3.71 MC/CUMM (3.8-5.5); Red Cell Distribution Width 14.8 % (9.3-17.3); White Blood Count 20.1 T/CUMM (4-12)
[2021-07-25 06:31] LABS: Lymphocytes 13 % (20-55); Total Cells Counted 100
[2021-07-25 06:33] LABS: Microcytosis 1+
[2021-07-25 06:34] LABS: Hypochromia Slight
[2021-07-25 06:35] LABS: Platelet Estimate Normal
[2021-07-25] MEDS ORDERED: DEXTROSE 5% 1,000 ML IV SCH (08:00)
[2021-07-25] MEDS: INSULIN LISPRO 100 UNIT/ML SUBCUT SCH ×4 (08:31→21:16)
[2021-07-25 10:53] LABS: Calcium 8.6 MG/DL (8.5-10.1); Osmolality,Calculated 330.2 MOS/KG (273-304); Potassium 3.8 MMOL/L (3.5-5.1)
[2021-07-25 15:10] LABS: Calcium 8.3 MG/DL (8.5-10.1); Osmolality,Calculated 325.5 MOS/KG (273-304); Potassium 3.5 MMOL/L (3.5-5.1)
[2021-07-25] MEDS: ENOXAPARIN 30 MG/0.3 ML SYRINGE SUBCUT SCH (21:15)
[2021-07-25] MEDS: TIMOLOL 0.25% OPH SOLN 5 ML BOTTLE BOTH EYES SCH (21:16)
[2021-07-25] MEDS: LATANOPROST 0.005% OPH SOLN 2.5 ML BOTTLE BOTH EYES SCH (21:16)
[2021-07-25 21:50] LABS: Calcium 8.4 MG/DL (8.5-10.1); Osmolality,Calculated 327.7 MOS/KG (273-304); Potassium 3.8 MMOL/L (3.5-5.1)
[2021-07-26] MEDS: SODIUM CHLORIDE 0.45% 1,000 ML IV SCH ×2 (00:10→16:31)
[2021-07-26] MEDS: MEROPENEM 500 MG in SODIUM CHLORIDE 0.9% 100 ML IV SCH ×4 (00:11→23:11)
[2021-07-26 06:14] LABS: Calcium 8.2 MG/DL (8.5-10.1); Osmolality,Calculated 316.3 MOS/KG (273-304); Potassium 3.8 MMOL/L (3.5-5.1)
[2021-07-26] MEDS: INSULIN LISPRO 100 UNIT/ML SUBCUT SCH ×4 (07:25→21:09)
[2021-07-26 15:56] LABS: Calcium 8.3 MG/DL (8.5-10.1); Osmolality,Calculated 315.4 MOS/KG (273-304); Potassium 3.5 MMOL/L (3.5-5.1)
[2021-07-26] MEDS: DEXTROSE 5% 1,000 ML IV SCH (16:39)
[2021-07-26] MEDS: TIMOLOL 0.25% OPH SOLN 5 ML BOTTLE BOTH EYES SCH (21:10)
[2021-07-26] MEDS: ENOXAPARIN 30 MG/0.3 ML SYRINGE SUBCUT SCH (21:10)
[2021-07-26] MEDS: LATANOPROST 0.005% OPH SOLN 2.5 ML BOTTLE BOTH EYES SCH (21:10)
[2021-07-27 06:56] LABS: Calcium 7.4 MG/DL (8.5-10.1); Osmolality,Calculated 311.9 MOS/KG (273-304); Potassium 3.6 MMOL/L (3.5-5.1)
[2021-07-27] MEDS: MEROPENEM 500 MG in SODIUM CHLORIDE 0.9% 100 ML IV SCH ×3 (09:50→23:43)
[2021-07-27] MEDS: INSULIN LISPRO 100 UNIT/ML SUBCUT SCH ×4 (09:50→21:15)
[2021-07-27] MEDS: DEXTROSE 5% 1,000 ML IV SCH ×2 (09:56→23:44)
[2021-07-27] MEDS: LATANOPROST 0.005% OPH SOLN 2.5 ML BOTTLE BOTH EYES SCH (21:14)
[2021-07-27] MEDS: TIMOLOL 0.25% OPH SOLN 5 ML BOTTLE BOTH EYES SCH (21:14)
[2021-07-27] MEDS: ENOXAPARIN 30 MG/0.3 ML SYRINGE SUBCUT SCH (21:15)
[2021-07-28 06:34] LABS: Calcium 7.8 MG/DL (8.5-10.1); Osmolality,Calculated 296.8 MOS/KG (273-304); Potassium 4.2 MMOL/L (3.5-5.1)
[2021-07-28 07:34] LABS: Basophils # 0.1 10*3/uL (0.0-0.2); Basophils % 0.6 % (0.0-0.8); Eosinophils # 0.4 10*3/uL (0.0-0.87); Eosinophils % 2.4 % (0.00-10.9); Hematocrit 32.6 VOL% (35.7-47.0); Hemoglobin 10.2 GM/DL (12.0-16.0); Immature Granulocytes % 4.4 %; Immature Granulocytes Absolute 0.78 #; Lymphocytes # 2.9 10*3/uL (1.4-4.0); Lymphocytes % 16.3 % (21.3-54.2); Mean Corpuscular HGB Conc 31.3 GM/DL (32-36); Mean Corpuscular Volume 96.4 FL (87-102); Mean Platelet Volume 13.6 FL (9.6-12.0); Monocytes # 1.5 10*3/uL (0.11-0.8); Monocytes % 8.5 % (1.7-12.7); Neutrophils % 67.8 % (38.7-73.9); Platelet Count 152 T/CUMM (130-400); Red Blood Count 3.38 MC/CUMM (3.8-5.5); Red Cell Distribution Width 14.4 % (9.3-17.3); White Blood Count 17.8 T/CUMM (4-12)
[2021-07-28 07:54] LABS: Eosinophils 3 % (0-10); Lymphocytes 12 % (20-55); Platelet Estimate Adequate; Total Cells Counted 100
[2021-07-28] MEDS: INSULIN LISPRO 100 UNIT/ML SUBCUT SCH ×4 (10:45→21:55)
[2021-07-28] MEDS: MEROPENEM 500 MG in SODIUM CHLORIDE 0.9% 100 ML IV SCH ×2 (10:46→16:30)
[2021-07-28] MEDS: DEXTROSE 5% 1,000 ML IV SCH (11:29)
[2021-07-28] MEDS ORDERED: VANCOMYCIN INJ 500 MG in SODIUM CHLORIDE 0.9% 250 ML IV SCH (12:00)
[2021-07-28] MEDS: VANCOMYCIN INJ 500 MG in SODIUM CHLORIDE 0.9% 100 ML IV SCH (14:28)
[2021-07-28 21:08] LABS: Bacteria,Urine Occasional /HPF (Few); RBC,Urine 4 /HPF (0-4); Squamous Epithelial Cell,Urine Occasional /HPF (0-10)
[2021-07-28 21:09] LABS: Bilirubin,Urine Negative (Negative); Glucose,Urine (UA) Negative (Negative); Ketones,Urine Negative (Negative); Nitrite,Urine Negative (Negative); Protein,Urine Negative (Negative); Urine Appearance Clear (Clear); Urine Color Yellow (Yellow); Urine Specific Gravity 1.015 (1.001-1.035)
[2021-07-28 21:10] LABS: Blood, Urine Negative (Negative); Urine Urobilinogen > 8.0 eU/dL (<2.0)
[2021-07-28] MEDS: ENOXAPARIN 30 MG/0.3 ML SYRINGE SUBCUT SCH (21:55)
[2021-07-28] MEDS: TIMOLOL 0.25% OPH SOLN 5 ML BOTTLE BOTH EYES SCH (21:55)
[2021-07-28] MEDS: LATANOPROST 0.005% OPH SOLN 2.5 ML BOTTLE BOTH EYES SCH (22:10)
[2021-07-29] MEDS: DEXTROSE 5% 1,000 ML IV SCH ×2 (00:22→19:30)
[2021-07-29] MEDS: MEROPENEM 500 MG in SODIUM CHLORIDE 0.9% 100 ML IV SCH ×3 (00:22→16:47)
[2021-07-29] MEDS: VANCOMYCIN INJ 500 MG in SODIUM CHLORIDE 0.9% 100 ML IV SCH ×2 (01:05→12:27)
[2021-07-29 06:08] LABS: Basophils # 0.1 10*3/uL (0.0-0.2); Basophils % 0.7 % (0.0-0.8); Eosinophils # 0.3 10*3/uL (0.0-0.87); Hematocrit 30.1 VOL% (35.7-47.0); Hemoglobin 9.6 GM/DL (12.0-16.0); Immature Granulocytes % 3.6 %; Lymphocytes % 18.1 % (21.3-54.2); Mean Corpuscular HGB Conc 31.9 GM/DL (32-36); Mean Corpuscular Volume 96.2 FL (87-102); Mean Platelet Volume 13.6 FL (9.6-12.0); Monocytes # 1.4 10*3/uL (0.11-0.8); Monocytes % 8.7 % (1.7-12.7); Neutrophils % 66.9 % (38.7-73.9); Platelet Count 156 T/CUMM (130-400); Red Blood Count 3.13 MC/CUMM (3.8-5.5); Red Cell Distribution Width 14.2 % (9.3-17.3); White Blood Count 16.5 T/CUMM (4-12)
[2021-07-29 06:12] LABS: Calcium 7.9 MG/DL (8.5-10.1)
[2021-07-29 06:33] LABS: Eosinophils 2 % (0-10); Lymphocytes 26 % (20-55); Platelet Estimate Adequate; Total Cells Counted 100
[2021-07-29] MEDS: INSULIN LISPRO 100 UNIT/ML SUBCUT SCH ×4 (09:16→23:05)
[2021-07-29] MEDS: ENOXAPARIN 30 MG/0.3 ML SYRINGE SUBCUT SCH (23:04)
[2021-07-29] MEDS: LATANOPROST 0.005% OPH SOLN 2.5 ML BOTTLE BOTH EYES SCH (23:07)
[2021-07-29] MEDS: TIMOLOL 0.25% OPH SOLN 5 ML BOTTLE BOTH EYES SCH (23:09)
[2021-07-30] MEDS: MEROPENEM 500 MG in SODIUM CHLORIDE 0.9% 100 ML IV SCH ×3 (00:11→14:02)
[2021-07-30] MEDS: VANCOMYCIN INJ 500 MG in SODIUM CHLORIDE 0.9% 100 ML IV SCH (00:55)
[2021-07-30 04:39] LABS: Basophils # 0.1 10*3/uL (0.0-0.2); Basophils % 0.4 % (0.0-0.8); Eosinophils # 0.2 10*3/uL (0.0-0.87); Eosinophils % 1.2 % (0.00-10.9); Hematocrit 32.1 VOL% (35.7-47.0); Hemoglobin 10.4 GM/DL (12.0-16.0); Immature Granulocytes % 2.6 %; Immature Granulocytes Absolute 0.43 #; Lymphocytes # 1.9 10*3/uL (1.4-4.0); Lymphocytes % 11.6 % (21.3-54.2); Mean Corpuscular HGB Conc 32.4 GM/DL (32-36); Mean Corpuscular Volume 94.4 FL (87-102); Monocytes # 1.4 10*3/uL (0.11-0.8); Monocytes % 8.7 % (1.7-12.7); Neutrophils % 75.5 % (38.7-73.9); Platelet Count 178 T/CUMM (130-400); Red Cell Distribution Width 14.2 % (9.3-17.3); White Blood Count 16.5 T/CUMM (4-12)
[2021-07-30 05:07] LABS: Calcium 7.7 MG/DL (8.5-10.1); Osmolality,Calculated 289.4 MOS/KG (273-304); Potassium 3.7 MMOL/L (3.5-5.1)
[2021-07-30] MEDS: VANCOMYCIN INJ 750 MG in SODIUM CHLORIDE 0.9% 250 ML IV SCH ×2 (09:48→21:43)
[2021-07-30] MEDS: INSULIN LISPRO 100 UNIT/ML SUBCUT SCH ×4 (09:49→20:08)
[2021-07-30] MEDS: DEXTROSE 5% 1,000 ML IV SCH ×2 (09:53→18:34)
[2021-07-30] MEDS: ERTAPENEM 1,000 MG in SODIUM CHLORIDE 0.9% 100 ML IV SCH (20:06)
[2021-07-30] MEDS: TIMOLOL 0.25% OPH SOLN 5 ML BOTTLE BOTH EYES SCH (20:07)
[2021-07-30] MEDS: LATANOPROST 0.005% OPH SOLN 2.5 ML BOTTLE BOTH EYES SCH (20:07)
[2021-07-30] MEDS: ENOXAPARIN 30 MG/0.3 ML SYRINGE SUBCUT SCH (20:08)
[2021-07-31 04:44] LABS: Basophils # 0.1 10*3/uL (0.0-0.2); Basophils % 0.3 % (0.0-0.8); Eosinophils # 0.1 10*3/uL (0.0-0.87); Eosinophils % 0.5 % (0.00-10.9); Hematocrit 33.9 VOL% (35.7-47.0); Hemoglobin 11.1 GM/DL (12.0-16.0); Immature Granulocytes % 1.9 %; Immature Granulocytes Absolute 0.41 #; Lymphocytes % 8.9 % (21.3-54.2); Mean Corpuscular HGB Conc 32.7 GM/DL (32-36); Mean Corpuscular Volume 93.9 FL (87-102); Monocytes # 1.8 10*3/uL (0.11-0.8); Monocytes % 8.2 % (1.7-12.7); Neutrophils % 80.2 % (38.7-73.9); Platelet Count 209 T/CUMM (130-400); Red Blood Count 3.61 MC/CUMM (3.8-5.5); Red Cell Distribution Width 14.4 % (9.3-17.3); White Blood Count 22.1 T/CUMM (4-12)
[2021-07-31 05:09] LABS: Lymphocytes 7 % (20-55); Platelet Estimate Adequate; Total Cells Counted 100
[2021-07-31] MEDS: INSULIN LISPRO 100 UNIT/ML SUBCUT SCH ×4 (09:20→23:42)
[2021-07-31] MEDS: VANCOMYCIN INJ 750 MG in SODIUM CHLORIDE 0.9% 250 ML IV SCH ×2 (09:20→22:14)
[2021-07-31] MEDS: DEXTROSE 5% 1,000 ML IV SCH (09:20)
[2021-07-31] MEDS: ENOXAPARIN 30 MG/0.3 ML SYRINGE SUBCUT SCH (22:14)
[2021-07-31] MEDS: TIMOLOL 0.25% OPH SOLN 5 ML BOTTLE BOTH EYES SCH (22:15)
[2021-07-31] MEDS: ERTAPENEM 1,000 MG in SODIUM CHLORIDE 0.9% 100 ML IV SCH (23:43)
[2021-07-31] MEDS: LATANOPROST 0.005% OPH SOLN 2.5 ML BOTTLE BOTH EYES SCH (23:43)
[2021-08-01] MEDS: DEXTROSE 5% 1,000 ML IV SCH ×2 (02:57→09:19)
[2021-08-01 05:18] LABS: Basophils # 0.1 10*3/uL (0.0-0.2); Basophils % 0.3 % (0.0-0.8); Eosinophils # 0.3 10*3/uL (0.0-0.87); Eosinophils % 1.4 % (0.00-10.9); Hematocrit 28.7 VOL% (35.7-47.0); Hemoglobin 9.2 GM/DL (12.0-16.0); Immature Granulocytes Absolute 0.22 #; Lymphocytes # 3.4 10*3/uL (1.4-4.0); Lymphocytes % 15.3 % (21.3-54.2); Mean Corpuscular HGB Conc 32.1 GM/DL (32-36); Mean Platelet Volume 12.9 FL (9.6-12.0); Monocytes # 2.3 10*3/uL (0.11-0.8); Monocytes % 10.2 % (1.7-12.7); Neutrophils % 71.8 % (38.7-73.9); Platelet Count 193 T/CUMM (130-400); Red Blood Count 3.02 MC/CUMM (3.8-5.5); Red Cell Distribution Width 14.7 % (9.3-17.3); White Blood Count 22.2 T/CUMM (4-12)
[2021-08-01 05:38] LABS: Calcium 7.7 MG/DL (8.5-10.1); Osmolality,Calculated 282.3 MOS/KG (273-304); Potassium 3.5 MMOL/L (3.5-5.1)
[2021-08-01 05:48] LABS: Lymphocytes 8 % (20-55); Platelet Estimate Adequate; Total Cells Counted 100
[2021-08-01] MEDS: INSULIN LISPRO 100 UNIT/ML SUBCUT SCH ×4 (07:53→22:47)
[2021-08-01] MEDS: ENOXAPARIN 30 MG/0.3 ML SYRINGE SUBCUT SCH (22:44)
[2021-08-01] MEDS: TIMOLOL 0.25% OPH SOLN 5 ML BOTTLE BOTH EYES SCH (22:45)
[2021-08-01] MEDS: LATANOPROST 0.005% OPH SOLN 2.5 ML BOTTLE BOTH EYES SCH (22:46)
[2021-08-01] MEDS: ERTAPENEM 1,000 MG in SODIUM CHLORIDE 0.9% 100 ML IV SCH (22:51)
[2021-08-02] MEDS: DEXTROSE 5% 1,000 ML IV SCH ×2 (06:22→20:08)
[2021-08-02] MEDS: INSULIN LISPRO 100 UNIT/ML SUBCUT SCH ×2 (08:35→11:50)
[2021-08-02 11:58] VITALS: BP 123/65
[2021-08-02] MEDS: ERTAPENEM 1,000 MG in SODIUM CHLORIDE 0.9% 100 ML IV SCH (13:11)
== END 2021-08-02 14:58 | DRG 640 ==
LOC: EDBD → EDUNIT# → SUATTDRO → N.ED 10:15 → N.5E 15:36 → SUATTDRO 15:36 → N.5E 18:50
PROVIDERS: ADMIT Internal Medicine; ATTEND Emergency Medicine